=== PATIENT | male | born 1950 | race Caucasian/White ===

== ENCOUNTER 2016-03-01 15:27 | Day surgery (SDC) | payer MEDICARE ==
[~2016-03-01] VITALS: Ht 172.7 cm; Wt 82.6 kg
[~2016-03-01 15:27] MED LIST: ONDANSETRON HCL 4 MG/2 ML VIAL IV PUSH ONE; PROPOFOL 200 MG/20 ML AMP IV ONE
[2016-03-01] MEDS ORDERED: VALS1TAB70 PO (16:19)
[2016-03-01] MEDS ORDERED: [UNRECOGNIZED DRUG - CODE] PO (16:19)
[2016-03-01] MEDS ORDERED: CARB25TA9 PO (16:19)
[2016-03-01 16:24] VITALS: BP 153/102; PULSE 85; RESP 18; TEMP 97.7; O2SAT 94
[2016-03-01] MEDS ORDERED: LACTATED RINGER'S 1000 ML IV SCH (16:45)
[2016-03-01] MEDS ORDERED: LACTATED RINGER'S 1000 ML INJ 500 ML IV SCH (16:45)
[2016-03-01] MEDS ORDERED: SODIUM CHLORID 0.9% 500 ML IV SCH (16:45)
[2016-03-01] MEDS ORDERED: INSULIN HUMAN REGULAR 1,000 UNITS/10 ML VIAL SQ PRN (16:45)
[2016-03-01] MEDS ORDERED: METOPROLOL TARTRATE 25 MG TAB PO PRN (16:45)
[2016-03-01] MEDS ORDERED: ceFAZolin 2 GM PREMIX 50 ML IV ONE (17:00)
[2016-03-01] MEDS ORDERED: DEXAMETHASONE SOD PHOS 4 MG/ML VIAL ONE (19:18)
[2016-03-01] MEDS ORDERED: FAMOTIDINE 20 MG/2 ML VIAL ONE (19:19)
[2016-03-01] MEDS ORDERED: BUPIVACAINE HCL PF 0.5% 30 ML VIAL ONE (19:30)
[2016-03-01] MEDS ORDERED: BACITRACIN TOP OINT 15 GM TUBE ONE (19:30)
[2016-03-01] MEDS ORDERED: FAMOTIDINE 20 MG/2 ML VIAL IV ONE (19:30)
[2016-03-01] MEDS ORDERED: LIDOCAINE HCL 2% 50 ML VIAL ONE (19:30)
[2016-03-01] MEDS ORDERED: CARBIDOPA/LEVODOPA 25 MG/100 MG TAB PO ONE (19:30)
[2016-03-01] MEDS ORDERED: DEXAMETHASONE SOD PHOS 4 MG/ML VIAL IV ONE (19:45)
[2016-03-01] MEDS ORDERED: MIDAZOLAM HCL 2 MG/2 ML VIAL IV ONE (19:45)
[2016-03-01] MEDS ORDERED: NEOMYCIN/POLYMYXIN 1 ML G.U. IRRIGANT IR ONE (20:02)
[2016-03-01] MEDS ORDERED: DO NOT ADM ANY ANTICOAGULANT DRUGS XX PRN (21:30)
[2016-03-01 21:35] VITALS: TEMP 98.1
--- NOTE | 2016-03-01 21:51 | PD.OP ---
Operative Report Preoperative Diagnosis: (1) Dislocation of proximal interphalangeal joint of left middle finger (2) Displaced fracture of proximal phalanx of left ring finger (3) Displaced fracture of proximal phalanx of left little finger Postoperative Diagnosis: (1) Dislocation of proximal interphalangeal joint of left middle finger (2) Displaced fracture of proximal phalanx of left ring finger (3) Displaced fracture of proximal phalanx of left little finger Procedure: open reduction dorsal Proximal interphalangeal joint dislocation left middle finger closed reduction and internal fixation with k-wrie proximal phalanx left ring and little fingers Anesthesia: general Surgeon: Elvin Pittman Hvac Sales Engineer(s): joellen Operation and Findings: open dorsal dislocation of the PIP joint left middle finger comminuted displaced epibasal fracture proximal phalanx left ring and little fingers comminuted fracture middle phalanx left little finger Elvin Pittman MD Mar 01, 2016 21:51
[2016-03-01 22:05] VITALS: BP 167/99; PULSE 83; RESP 16; O2SAT 95
[2016-03-02] MEDS ORDERED: fentaNYL CITRATE 250 MCG/5 ML AMP ONE (15:22)
--- NOTE | 2016-03-02 22:52 | EKG ---
Date Performed: 03/01/2016 Time Performed: 16:30:36 PTAGE: 65 years EKG: Sinus rhythm MARKED LEFT AXIS DEVIATION POSSIBLE ANTERIOR MYOCARDIAL INFARCTION , OF INDETERMINATE AGE ABNORMAL E CG NO PREVIOUS TRACING DOCTOR: Jairo Fagan Interpretating Date/Time 03/02/2016 22:47:03
--- NOTE | 2016-03-06 19:11 | MP ---
cc: ELVIN SNYDER MD DATE OF SURGERY: 03/01/2016 PREOPERATIVE DIAGNOSIS: Open dorsal dislocation, proximal interphalangeal joint left middle finger comminuted Epi basal displaced fracture proximal phalanx left ring finger and left little finger. POSTOPERATIVE DIAGNOSIS Open dorsal dislocation proximal interphalangeal joint left middle finger and comminuted the Epi basal displaced fracture proximal phalanx left ring and little fingers. PROCEDURE PERFORMED Attempted closed reduction, Open reduction proximal interphalangeal joint and the volar plate repair of left middle finger. Closed reduction internal fixation proximal phalanx left ring and little fingers. SURGEON Elvin Snyder MD ANESTHESIA General ESTIMATED BLOOD LOSS Minimal TOURNIQUET TIME 55 minutes at 250 mmHg to PACU stable. IMPLANTS: 0.45 K-wires x2. PROCEDURE: The patient is a 65-year-old right-hand dominant male who presented with complaints of history of fall and injury to the left hand. The patient was seen initially at [facility]. He had closed reduction and he was advised to follow up with hand surgeon. On examination he had deformity involving the middle finger little finger and ring fingers with swelling and blisters and there is evidence of pseudo clawing of the ring and little fingers. Range of motion was very limited and painful. X-ray showed persistent dorsal dislocation of the proximal interphalangeal joint and epi basal fracture with comminution and displacement involving the proximal phalanx of the ring and little finger as well as comminuted fracture involving the middle phalanx region of the middle phalanx of the little finger. He also had sutured laceration over the volar aspect of the PIP joint of the middle finger. The patient was consented for closed / open reduction of the PIP joint left middle finger and close / open reduction proximal phalanx of the left ring and the little fingers. He was explained risk and benefits of procedure. PROCEDURE: The patient was brought to the operating room under general anesthesia the left upper extremity was thoroughly prepped and draped sutures placed over laceration of the left middle finger PIP joint region was removed. Initially closed reduction was attempted which was unsuccessful and hence decision was made to proceed with open reduction, the laceration was opened up. A tourniquet inflated to 250 mmHg after exsanguination. There was evidence of swelling of the wound with foreign body material within the region which was thoroughly washed out. There is evidence of dorsal dislocation of the PIP joint with complete avulsion of the volar plate from the distal aspect. The flexor tendons were retracted and head of the proximal phalanx was exposed and the volar plate within the joint was retracted reducing the joint. The reduction was confirmed using C-arm multiple views were obtained including the lateral view for concentric reduction. The volar plate was a was then repaired to the base of the middle phalanx using multiple 3-0 Ethibond stitches. The joint was stable and to about 20 degrees of flexion. The skin laceration was then approximated using 4-0 nylon in a horizontal mattress interrupted fashion. Attention was then directed to the little finger. Multiple blisters noted which was ruptured, with exposed soft tissues over the dorsal aspect of proximal phalanx region. Closed suction was initially attempted by flexing the MP joint, I was able to achieve or acceptable alignment of the fracture. A decision was made to proceed with closed reduction and internal fixation, keeping the MP joint in flexion to about 90 degrees. 0.45 K-wire was drilled through the head of the metacarpal into the MP joint and into the proximal fragment with this in place, The distal fragment was flexed at the fracture site. Reduction was confirmed under C-arm and the K-wire was then introduced into the distal fragment. The fracture was well aligned on the lateral view with correction of pseudo applying and a volar apex angulation. The middle phalanx was comminuted and was in acceptable alignment and will be managed conservatively. Attention was then directed to the ring finger. He had comminution comminuted epi basal fracture with a volar apex angulation. Closed reduction was attempted acceptable alignment was obtained because of the multiple blisters, the alignment was acceptable, decision was made to proceed with closed reduction and K wire fixation. 0.045 K-wire was then introduced into the metacarpal head with the MP joint was flexed to 90 degrees. The K-wire was then passed into the proximal fragment and distal fragment was flexed reducing the fracture and this was confirmed using C- arm and the K-wire was introduced into the distal fragment keeping the MP joint flexed 90 degrees. The fracture alignment was acceptable and K-wire position was also acceptable. The wires were then cut and bent and protected with Tank balls, the blisters were covered with bacitracin about 5 cc of local anesthesia was given as a digital block to each finger. Tourniquet is deflated. Total tourniquet time was 55 minutes. The patient good distal circulation after the tourniquet. Bulky hand dressing was applied which was held in place by Sof-Rol and dorsal block splint was applied keeping the MP joints in flexion extending all the way to the fingertips keeping and PIP joint of the middle finger in flexion. He was recovered sent to go stable condition. Follow up in 2 days time for dressing and splint change. Elvin Snyder MD SE/des /9:54 PM /6:56 PM [email or web address]
== END 2016-03-01 23:00 | disposition home or self-care (01) ==
LOC: HSDC 15:27
PROVIDERS: ATTEND Surgery Surgery of the Hand
DX: S63.283A Dislocation of proximal interphalangeal joint of left middle finger, initial encounter (principal); S62.615A Displaced fracture of proximal phalanx of left ring finger, initial encounter for closed fracture; S62.617A Displaced fracture of proximal phalanx of left little finger, initial encounter for closed fracture; I10 Essential (primary) hypertension; W19.XXXA Unspecified fall, initial encounter; Y93.73 Activity, racquet and hand sports
CPT/HCPCS: 01830; 26735; 26785; 76000; 93005; J0690; J2250; J2405; J7120; J1100; J3010